=== PATIENT | male | born 1970 | race Caucasian/White ===

== ENCOUNTER 2017-03-30 19:56 | Emergency (ER) | payer BC ==
--- NOTE | 2017-03-30 21:50 | ERNOTE ---
ENT HPI Presenting Symptoms: other - facial pain/ swelling Time Seen by Provider: 03/30/17 21:35 Source: patient Exam Limitations: no limitations - Immun/Allergies/Home Medications Immunizations: IMMUNIZATION HX Immunizations Up to Date Yes History of Influenza Vaccine No Hx Pneumococcal Vaccination No Allergies/Adverse Reactions: Allergies Allergy/AdvReac Type Severity Reaction Status Date / Time No Known Drug Allergies Allergy Verified 03/30/17 20:19 Home Medications: HOME MEDICATIONS Nabumetone 750 mg PO BID #20 tablet 03/30/17 [Last Taken Unknown] - History of Present Illness Narrative: Pt began with a sore throat 3 days ago and was seen in the walk in clinic and dx with strep. He had some facial pain on the right but he felt it was minor in comparison to his throat. He was given amoxicillin PO for strep Today his right cheek became more swollen and erythematous with some drainage. He returned to the walk in clinic and they changed his antibiotic to cefdinir and he believes gave him an injection of steroid (not on his d/c documentation). His face continues to worsen and he is having some blurry vision Severity: Present: moderate, severe ENT Location: Present: eye (R), facial Prearrival Treatment: Present: prescription meds Modifying Factors - Improves: Reports: nothing Associated Symptoms - ENT: Reports: fever, malaise, facial pain/swelling Prior Treament: Reports: recently seen, treated by physician, currently on antibiotics Review of Systems - Review of Systems Constitutional: Present: See HPI, recent illness, fever, fatigue, malaise EYE: Present: blurred vision, tearing ENT: Present: See HPI, sore throat. Absent: nose pain, nose congestion, nasal drainage Respiratory: Absent: shortness of breath, cough Cardiology: Absent: chest pain, palpitations Gastrointestinal/Abdominal: Absent: nausea, vomiting Genitourinary: Present: no symptoms reported Musculoskeletal: Absent: muscle stiffness, neck pain Skin: Present: See HPI Neurological: Absent: headache, dizziness/light-headedness Endocrine: Present: no symptoms reported Hematologic/Lymphatic: Present: no symptoms reported Psych: Present: no symptoms reported - Patient's Past Medical History Patient History - Medical: Arthritis, Chronic Pain, GERD Patient History - Cardiac/Respiratory: COPD, Hyperlipidemia Patient History - Cancer: No Hx of Cancer Patient History - Surgical Procedures: Vasectomy, Other Patient History - Other: None - Family History Father Family History - Cardiac/Respiratory: Other Mother Family History - Medical: , Diabetes Type 2 Family History - Cardiac/Respiratory: Asthma, CVA/Stroke, Hypertension Aunt/Uncle Family History - Medical: Other Family History - Cardiac/Respiratory: Hypertension - Social History Living Situations: home Abuse History: No History of abuse Psych History: Hx of Anxiety, Hx of Depression Smoking Status: Former smoker Have you smoked in the past 12 months: No Do you dip or chew tobacco: No Alcohol Use: none Drug Use: none - Immunizations Immunizations Up to Date: Yes Hx Pneumococcal Vaccination: No History of Influenza Vaccine: No Physical Exam - Physical Exam General Appearance: Present: wd/wn, alert, no apparent distress Head Exam: Present: no evidence of injury Eye Exam: PERRL: bilateral, EOMI: bilateral Ears, Nose, Throat: Present: normal except - - right maxillary area erythematous and draining serosanguinous material Neck: Present: normal inspection, nontender Respiratory: Present: no respiratory distress, no accessory muscle use Back Exam: Present: normal inspection Extremity Exam: Present: normal inspection Neurological Exam: Present: alert, oriented, normal mood/affect Skin Exam: Present: normal color, warm/dry ED Progress - Results and Orders Patient's Lab Results:: I have reviewed the patient's lab results. Results and Orders: Laboratory Tests 03/30/17 03/30/17 21:59 21:59 WBC 8.7 RBC 4.72 Hct 40.5 L Plt Count 303 Sodium 137 Potassium 3.8 Chloride 99 Carbon Dioxide 25.5 Anion Gap 16.3 H BUN 11 Est GFR (Non-Af Amer) 80 BUN/Creatinine Ratio 10.4 Random Glucose 94 Calcium 8.4 - Vital Signs Vital Signs: Vital Signs 03/30/17 20:19 Temperature 37.3 C Pulse Rate 98 Respiratory 18 Rate Blood Pressure 155/101 O2 Sat by Pulse 99 Oximetry - CT/Ultrasound CT/Ultrasound Narrative: CT maxilla: mucoid retension cyst right maxillary sinus. STS over right maxillary and inferior orbital area suggesting cellulitis - Progress/Reassessment Chief Complaint: Facial Injury Progress:: Improved Progress Note-Subjective: 03/30/17 22:[address] results with the patient. He has just started on cefdinir. We will allow him to continue on his current antibiotics and if resistant bacteria are found on culture the clinic would call them. Departure Clinical Impression: Cellulitis and abscess of face - Departure Disposition: Home Follow Up Needed Condition: Good Instructions: Cellulitis, Adult, [id number], Heat Therapy Additional Instructions: Continue to take your current medications. Warm packs to the face may help it drain. Prescriptions: Nabumetone 750 mg PO BID #20 tablet
[2017-03-30 22:01] LABS: Hematocrit 40.5 % (42.0-52.0); Hemoglobin 13.7 gm/dL (13.5-18.0); Mean Cell Volume 85.8 fl (78-100); Mean Corpuscular Hgb Conc 33.8 g/dl (32-36); Mean Platelet Volume 9.5 fl (6.0-9.5); Neutrophil # 5.6 K/mm3 (1.3-6.0); Neutrophil % 65.1 % (42-75.0); Platelet Count 303 K/mm3 (150-450); Red Blood Count 4.72 M/mm3 (4.7-6.0); White Blood Count 8.7 K/mm3 (4.0-10.5)
[2017-03-30 22:07] LABS: Anion Gap 16.3 mmol/L (6.8-13.8); BUN/Creatinine Ratio 10.4 (9.0-21.6); Calcium * 8.4 mg/dL (7.9-10.9); Carbon Dioxide 25.5 mmol/L (24-32.6); Potassium 3.8 mmol/L (3.4-4.6)
[2017-03-30] MEDS ORDERED: KETOROLAC TROMETHAMINE 60 MG/2 ML VIAL IM ONE ×2 (22:40→22:42)
[2017-03-30 22:49] VITALS: BP 147/97
== END 2017-03-30 22:48 | disposition home or self-care (01) ==
LOC: ER 19:56
DX: L03.211 Cellulitis of face (principal); Z87.891 Personal history of nicotine dependence